=== PATIENT | male | born 2000 | race Caucasian/White ===

== ENCOUNTER 2020-04-04 13:38 | Emergency (ER) | payer OTHER, SELFPAY ==
[2020-04-04 14:33] VITALS: BP 147/74; PULSE 73; RESP 18; TEMP 36.6; O2SAT 100; BMI 31.7
--- NOTE | 2020-04-04 14:37 | HMH.EDUTC ---
[facility] [place] Clinical Impression: Encounter for laboratory testing for COVID-19 virus Disposition: Home, Self-Care Condition on Discharge: Good Instructions: Preventing the Spread of Coronavirus Discharge Instructions Additional Instructions: *Monitor Temp, Over the counter Motrin or Tylenol as directed/as needed Tylenol every 4 hours and Motrin every 6 hours (as long as your family doctor has told you that you can take it) for fever or pain. and straight to ER if unable to lower temp less than 101.0 after medication given Follow up IMMEDIATELY for new or worsening symptoms or no Noticeable improvement over the next 48-72 hours. 911 for difficulty breathing or swallowing You was tested for today for COVID19 your test result should be back later this evening or tomorrow, you may call back later this evening to see if your test results are back and the result You was given a handout with instructions for Self Quarantine and Self isolation for while you wait on test results and what to do if they are positive Referrals: PCP,No [Primary Care Provider] - As needed Forms: Work/School Release Time of Disposition: 14:40 Medical Decision Making - Oren Inquiry Pt receiving controlled substance: No Oren was queried for this patient: No Vital Signs: 04/04/20 14:33 Temperature 97.9 F Temperature Source Oral Pulse Rate [Radial] 73 Respiratory Rate 18 Blood Pressure [Right Arm] 147/74 H Blood Pressure Mean [Right Arm] 98 Blood Pressure Source [Right Arm] Automatic Cuff Blood Pressure Position [Right Arm] Sitting 02 Sat by Pulse Oximetry 100 Oxygen Delivery Method Room Air Orders (Tests/Meds): ORDERS Category Date Time Status Covid-19 Nasal PCR ([facility]) Routine Lab 04/04/20 14:30 Ordered [facility] [place] - General Stated complaint: Covid exposure Time Seen by Provider: 04/04/20 14:38 Mode of Arrival: Ambulatory Source of Information: Patient Limitations: No Limitations Description of Symptoms (Recalled from Triage Doc. by RN): covid exposure HEENT Symptoms (Recalled from RN notes): No Resp Symptoms (Recalled from RN notes): No Skin Symptoms (Recalled from RN notes): No MS Symptoms (Recalled from RN notes): No Functional Status (Recalled from RN notes): wnl - History of Present Illness Provider Complaint: Patient states that grandmother tested positive for COVID last week but did not have any symptoms and he lives in the same house as her States that they wanted to get him tested to make sure he doesnt have it - Related Data Previous Rx's Medication Instructions Recorded Famotidine 20 mg PO BID 30 Days #150 ml 06/09/19 Ofloxacin [Ocuflox 0.3% OPHTH 1 drp EYE-BOTH TID 7 Days #1 bottle 06/09/19 drops 5mL] Ondansetron [Zofran 4mg ODT] 4 mg PO Q8HP PRN #10 tab.rapdis 06/09/19 Allergies Allergy/AdvReac Type Severity Reaction Status Date / Time No Known Allergies Allergy Verified 08/04/18 11:46 - Worker's Comp Is this a Worker's Comp case?: No [facility] History - Hepatitis A Screen Drug use history?: No High risk sexual behaviors?: No History of sexually transmitted infection?: No Currently employed?: No Childcare worker?: No Do you have indoor plumbing?: Yes Do you have electricity?: Yes Attestation statement:: This patient has been screened for Hepatitis A risk factors. I have reviewed the patient's past medical history: Yes Medical History: Reports:: Anxiety Laterality Cases: Bilateral: Myringotomy (Ear Tubes) - Social History Smoking Status: Never smoker Alcohol Intake: never Substance Use Type: denies use Occupational Status: other Housing: house Household Members: family - Psychiatric History Pschychiatric History:: Reports:: Anxiety Family Hx:: Non-contributory ROS Obtained: Yes All systems reviewed & no additional complaints, Yes Systems reviewed as appropriate & no additional complaints - Constitutional Constitutional: Reports system reviewed and no additional
[2020-04-04 15:03] VITALS: BP 147/74; PULSE 73; RESP 18; TEMP 36.6; O2SAT 100
[2020-04-06 13:51] LABS: Covid-19 Nasal PCR Sendout Lex Not Detected
== END 2020-04-04 15:04 | disposition home or self-care (01) ==
PROVIDERS: Emergency Provider Nurse Practitioner
DX: Z20.828 Contact with and (suspected) exposure to other viral communicable diseases (principal); F41.9 Anxiety disorder, unspecified
CPT/HCPCS: 99201; U0004

== ENCOUNTER 2021-11-26 17:58 | Emergency (ER) | payer OTHER, SELFPAY ==
--- NOTE | 2021-11-26 18:13 | HMH.EDUTC ---
[facility] [place] Dis[place] Clinical Impression: Abscess of left lower leg Bilateral otitis media Qualifiers: Otitis media type: suppurative Chronicity: acute Recurrence: non-recurrent Spontaneous tympanic membrane rupture: without spontaneous rupture Qualified Code(s): H66.003 - Acute suppurative otitis media without spontaneous rupture of ear drum, bilateral Disposition: Home, Self-Care Condition on Discharge: Good Instructions: Middle Ear Infection, Boil Additional Instructions: Drink plenty of fluids. Take tylenol or ibuprofen for pain or fever. Take the medications as directed. Follow up with your regular doctor. GO TO THE ER FOR ANY WORSENING SYMPTOMS Keep the affected area clean and dry. Follow up with your regular doctor. Take the antibiotics as directed and apply the topical antibiotics as directed. Apply warm wet compresses to the affected area three or four times per day. GO TO THE ER FOR ANY WORSENING SYMPTOMS Prescriptions: Sulfamethoxazole/Trimethoprim [Bactrim Oral susp 100mL bottle] 20 ml PO BID 10 Days #400 ml Transmission Status: Received by [facility] Mupirocin [Bactroban 2% Ointment 22gm tube] 1 applicatio TP TID 7 Days #1 gm Transmission Status: Received by [facility] cephALEXin [cephALEXin 250mg/5mL 100mL susp] 500 mg PO Q8H 10 Days #300 ml Transmission Status: Received by [facility] prednisoLONE [Prednisolone] 15 mg PO BID 4 Days #50 ml Transmission Status: Received by [facility] Referrals: Brayan Leslie MD [Primary Care Provider] - Time of Disposition: 18:35 Medical Decision Making - Medical Records Medical records reviewed: No: I reviewed the patient's medical records. - Oren Inquiry Pt receiving controlled substance: No Vital Signs: 11/26/21 18:14 11/26/21 18:52 Temperature 98.0 F 98.0 F Temperature Source Oral Pulse Rate 62 Pulse Rate [Left] 62 Respiratory Rate 17 17 Blood Pressure 153/96 H Blood Pressure [Right Arm] 153/96 H Blood Pressure Mean [Right Arm] 115 02 Sat by Pulse Oximetry 97 - Lab Data Lab results reviewed: Yes: I reviewed the patient's lab results. [facility] [place] HPI - General Stated complaint: Bite on L ankle, ear ache Time Seen by Provider: 11/26/21 18:13 - History of Present Illness Provider Complaint: He states that he has had left ear pain and sore throat for the past 2 days. He also had a bug bite on his left lower calf that he states is getting infected. - Related Data Previous Rx's Medication Instructions Recorded Mupirocin [Bactroban 2% Ointment 1 applicatio TP TID 7 Days #1 gm 11/26/21 22gm tube] Sulfamethoxazole/Trimethoprim 20 ml PO BID 10 Days #400 ml 11/26/21 [Bactrim Oral susp 100mL bottle] cephALEXin [cephALEXin 250mg/5mL 500 mg PO Q8H 10 Days #300 ml 11/26/21 100mL susp] prednisoLONE [Prednisolone] 15 mg PO BID 4 Days #50 ml 11/26/21 Allergies Allergy/AdvReac Type Severity Reaction Status Date / Time No Known Allergies Allergy Verified 11/26/21 18:18 [facility] History - Hepatitis A Screen Attestation statement:: This patient has been screened for Hepatitis A risk factors. I have reviewed the patient's past medical history: Yes Medical History: Reports:: Anxiety Laterality Cases: Bilateral: Myringotomy (Ear Tubes) Other Surgeries: Yes: Other (tubes in ears when kid ) Amputation: No Fractures: No - Social History Smoking Status: Never smoker Alcohol Intake: never Substance Use Type: denies use Occupational Status: other Housing: house Household Members: family - Psychiatric History Pschychiatric History:: Reports:: Anxiety Family Hx:: Non-contributory ROS Obtained: Yes All systems reviewed & no additional complaints - Constitutional Constitutional: Reports chills, Denies fever(s), Reports poor appetite, Reports malaise - Eyes Eyes: Denies eye discharge - ENT Ears, Nose, Mouth, and Throat: Reports as per HPI
[2021-11-26 18:14] VITALS: BP 153/96; PULSE 62; RESP 17; TEMP 36.7; O2SAT 97; BMI 32.8
[2021-11-26 18:52] VITALS: BP 153/96; PULSE 62; RESP 17; TEMP 36.7
== END 2021-11-26 18:52 | disposition home or self-care (01) ==
PROVIDERS: Emergency Provider Nurse Practitioner Family; PCP Family Medicine
DX: L02.416 Cutaneous abscess of left lower limb (principal); H66.003 Acute suppurative otitis media without spontaneous rupture of ear drum, bilateral
CPT/HCPCS: 99212; G0463

== ENCOUNTER 2021-12-20 13:40 | Emergency (ER) | payer OTHER, SELFPAY ==
[2021-12-20 13:41] VITALS: BP 131/87; PULSE 61; RESP 20; TEMP 36.8; O2SAT 98; BMI 28.3
--- NOTE | 2021-12-20 14:40 | HMH.EDUTC ---
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 911 for difficulty breathing or swallowing Prescriptions: Loratadine [Claritin 10mg Tablet] 10 mg PO DAILY #30 tab Transmission Status: Pending to [facility] Fluticasone Propionate [Flonase 50mcg nasal spray 16gm] 1 spr NS DAILY #1 each Transmission Status: Pending to [facility] Referrals: Brayan Lselie MD [Primary Care Provider] - As needed Time of Disposition: 14:55 Medical Decision Making - Oren Inquiry Pt receiving controlled substance: No Oren was queried for this patient: No Vital Signs: 12/20/21 13:41 Temperature 98.3 F Temperature Source Oral Pulse Rate [Left Radial] 61 Respiratory Rate 20 Blood Pressure [Right Arm] 131/87 Blood Pressure Mean [Right Arm] 101 Blood Pressure Source [Right Arm] Automatic Cuff Blood Pressure Position [Right Arm] Sitting 02 Sat by Pulse Oximetry 98 Oxygen Delivery Method Room Air [facility] [place] HPI - General Stated complaint: Ear ache; runny nose; eyes burning Time Seen by Provider: 12/20/21 14:00 Mode of Arrival: Ambulatory Source of Information: Patient Limitations: No Limitations Description of Symptoms (Recalled from Triage Doc. by RN): c/o runny nose, ears hurt slightly, eyes burning, recheck on ear infection HEENT Symptoms (Recalled from RN notes): Yes Resp Symptoms (Recalled from RN notes): No Skin Symptoms (Recalled from RN notes): No MS Symptoms (Recalled from RN notes): No Functional Status (Recalled from RN notes): na - History of Present Illness Provider Complaint: Patient states that he had ear infection abougt 3-4 weeks ago States that it got better but feels like it may be coming back States that he has been having pain in his left ear, sinus congestion, burning in his eyes and feeling like he is getting another ear infection so he came in to get checked out - Related Data Previous Rx's Medication Instructions Recorded Mupirocin [Bactroban 2% Ointment 1 applicatio TP TID 7 Days #1 gm 11/26/21 22gm tube] cephALEXin [cephALEXin 250mg/5mL 500 mg PO Q8H 10 Days #300 ml 11/26/21 100mL susp] prednisoLONE [Prednisolone] 15 mg PO BID 4 Days #50 ml 11/26/21 clindamycin HCl 300 mg capsule 300 mg PO BID #10 cap 11/28/21 clindamycin palmitate HCl 75 mg/5 300 mg PO BID 5 Days #200 ml 11/28/21 mL oral solution methylprednisolone 4 mg tablets in See Rx Instructions PO PER PKG DIR 12/17/21 a dose pack #21 tab Fluticasone Propionate [Flonase 1 spr NS DAILY #1 each 12/20/21 50mcg nasal spray 16gm] Loratadine [Claritin 10mg 10 mg PO DAILY #30 tab 12/20/21 Tablet] Allergies Allergy/AdvReac Type Severity Reaction Status Date / Time No Known Allergies Allergy Verified 11/26/21 18:18 - Worker's Comp Is this a Worker's Comp case?: No [facility] History - Hepatitis A Screen Attestation statement:: This patient has been screened for Hepatitis A risk factors. I have reviewed the patient's past medical history: Yes Medical History: Reports:: Anxiety Laterality Cases: Bilateral: Myringotomy (Ear Tubes) Other Surgeries: Yes: Other (tubes in ears when kid ) Amputation: No Fractures: No - Social History Smoking Status: Never smoker Alcohol Intake: never Substance Use Type: denies use Occupational Status: other Housing: house Household Members: family - Psychiatric History
[2021-12-20 15:00] VITALS: BP 131/87; PULSE 61; RESP 20; TEMP 36.8; O2SAT 98
== END 2021-12-20 15:00 | disposition home or self-care (01) ==
PROVIDERS: Emergency Provider Nurse Practitioner; PCP Family Medicine
DX: J30.9 Allergic rhinitis, unspecified (principal); H92.02 Otalgia, left ear; T26.40XA Burn of unspecified eye and adnexa, part unspecified, initial encounter; F41.9 Anxiety disorder, unspecified; Z79.51 Long term (current) use of inhaled steroids; Z79.52 Long term (current) use of systemic steroids; Z79.899 Other long term (current) drug therapy
CPT/HCPCS: 99213; G0463

== ENCOUNTER 2022-05-08 19:21 | Emergency (ER) | payer OTHER, SELFPAY ==
--- NOTE | 2022-05-08 20:21 | EXP.UTC ---
Discharge Plan Disposition Patient Disposition: Home, Self-Care Condition: Good Prescriptions Prescriptions: New amoxicillin [amoxicillin] 400 mg/5 mL suspension for reconstitution 500 mg PO TID 10 Days Qty: 187.5 0RF [id number] [Bromfed DM] 2-30-10 mg/5 mL Syrup 5 ml PO Q6H PRN (Reason: Cough) Qty: 240 0RF methylprednisolone 4 mg Tablets,Dose Pack 4 mg PO DIRECTED Qty: 21 0RF No Action clindamycin HCl 300 mg capsule 300 mg PO BID Qty: 10 0RF clindamycin palmitate HCl 75 mg/5 mL recon soln 300 mg PO BID 5 Days Qty: 200 0RF methylprednisolone [Medrol (Chan)] 4 mg tablets,dose pack See Rx Instructions PO PER PKG DIR Qty: 21 0RF Rx Instructions: PO PER PKG DIR fluticasone propionate 120 SPRAY bottle 1 spr NS DAILY Qty: 1 0RF Rx Instructions: one spray in each nostril daily loratadine 10 MG tablet 10 mg PO DAILY Qty: 30 0RF mupirocin 22 GM ointment 1 applicatio TP TID 7 Days Qty: 1 0RF cephalexin 250 MG/5 ML bottle 500 mg PO Q8H 10 Days Qty: 300 0RF prednisolone 15 MG/5 ML solution 15 mg PO BID 4 Days Qty: 50 0RF Referrals Follow up/Referrals: Brayan Leslie MD [Primary Care Provider] - See instructions Activity Restrictions/Add. Instructions Additional Instructions/Restrictions: Drink plenty of fluids. Take tylenol or ibuprofen for pain or fever. Take the medications as directed. Follow up with your regular doctor. GO TO THE ER FOR ANY WORSENING SYMPTOMS Clinical Impressions Clinical Impression: Otitis media, Pharyngitis, Cervical adenopathy Instructions Patient Instructions: Middle Ear Infection, DI for Viral Syndrome, DI for Lymphadenopathy Discharge ED Provider: Leonidas Archer [facility] General Stated complaint: SOB [place] Time Seen by Provider: 05/08/22 20:21 History of Present Illness Provider Complaint: He states that for the past 2 days he has had a sore throat, ear pain, chills, low grade fever and he has felt bad. He tested negative for influenza and covid-19 at his school when his symptoms first began. He denies any shortness of breath. He does have some chest congestion though. Related Data Previous Rx's Medication Instructions Recorded cephalexin 250 mg/5 mL oral 500 mg (10 mL) PO Q8H 10 days #300 11/26/21 suspension mL mupirocin 2 % topical ointment 1 applicatio topical TID 7 days ##1 11/26/21 prednisolone 15 mg/5 mL oral 15 mg (5 mL) PO BID 4 days #50 mL 11/26/21 solution clindamycin HCl 300 mg capsule 300 mg PO BID infection #10 caps 11/28/21 clindamycin palmitate HCl 75 mg/5 300 mg (20 mL) PO BID 5 days #200 11/28/21 mL oral solution mL methylprednisolone 4 mg tablets in See Rx Instructions PO PER PKG DIR 12/17/21 a dose pack (Medrol (Chan)) #21 tabs fluticasone propionate 50 1 spr intranasal DAILY #1 ea 12/20/21 mcg/actuation nasal spray,suspension loratadine 10 mg tablet 10 mg PO DAILY #30 tabs 12/20/21 amoxicillin 400 mg/5 mL oral 500 mg (6.25 mL) PO TID 10 days 05/08/22 suspension #187.5 mL [id number] 5 ml PO Q6H PRN Cough #240 mL 05/08/22 2 mg-30 mg-10 mg/5 mL oral syrup (Bromfed DM) methylprednisolone 4 mg tablets in 4 mg PO DIRECTED #21 tabs 05/08/22 a dose pack Allergies Allergy/AdvReac Type Severity Reaction Status Date / Time No Known Allergies Allergy Verified 05/08/22 20:30 [facility] Disclaimer: The information contained in this section may have been updated after the patient was seen, as this information can be updated by other users. Social History Smoking Status: Never smoker alcohol intake: never substance use type: denies use current occupational status: other Travel in the last 8 weeks: None household members: family housing: house ROS Obtained: Yes All systems reviewed & no additional complaints except as documented Constitutional Constit
[2022-05-08 20:27] VITALS: BP 141/79; PULSE 88; RESP 18; TEMP 36.6; O2SAT 98; BMI 31.3
[2022-05-08 20:59] LABS: UTC Strep Screen (Rapid) Negative (Negative)
[2022-05-08 21:04] VITALS: BP 141/79; PULSE 88; RESP 18; TEMP 36.6
== END 2022-05-08 21:06 | disposition home or self-care (01) ==
PROVIDERS: Emergency Provider Nurse Practitioner Family; PCP Family Medicine
DX: H66.93 Otitis media, unspecified, bilateral (principal); J02.9 Acute pharyngitis, unspecified
CPT/HCPCS: 87880; 99212; G0463

== ENCOUNTER → 2022-06-23 09:45 | Outpatient (CLI) | payer OTHER, SELFPAY ==
[2022-06-23 14:58] LABS: Alanine Aminotransferase 34 U/L (12-78); Albumin Level 4.7 g/dl (3.5-5.0); Albumin/Globulin Ratio 1.7 (1.1-1.8); Alkaline Phosphatase 65 U/L (38-126); Aspartate Amino Transferase 29 U/L (17-59); Bilirubin,Total 0.8 mg/dl (0.2-1.3); Blood Urea Nitrogen 18 mg/dl (9-20); Calcium 9.4 mg/dl (8.4-10.2); Carbon Dioxide 28 mmol/L (22.0-30.0); Chloride 103 mmol/L (98-107); Chol/HDL Ratio 4.1 (1-3.5); Cholesterol 136 mg/dl (140-200); Estimated Glomerular Filt Rate 85 ml/min (>60); GFR (African American) 102 ML/MIN (>60); Globulin 2.7 g/dL (1.3-3.2); Glucose 99 mg/dl (74-100); HDL Cholesterol 33 mg/dl (40-60); Sodium 141 mmol/L (136-145); Total Protein,Serum 7.4 g/dl (6.3-8.2); Triglycerides 140 mg/dl (30-150); VLDL Cholesterol 28 mg/dL (0-40)
[2022-06-23 15:03] LABS: Basophils # 0.1 K/mm3 (0-0.2); Basophils % 0.7 % (0.1-2.0); Eosinophils # 0.1 K/mm3 (0.0-0.4); Eosinophils % 1.8 % (0.1-12.0); Hematocrit 49.4 % (42.0-52.0); Lymphocytes # 2.1 K/mm3 (0.7-4.5); Lymphocytes % 32.4 % (10-50); Mean Corpuscular HGB Conc 34.4 g/dL (31.8-35.4); Mean Corpuscular Hemoglobin 30.5 pg (27.0-31.2); Mean Corpuscular Volume 88.8 fl (80-94); Mean Platelet Volume 10.2 fl (7.4-10.4); Monocytes # 0.5 K/mm3 (0.1-1.0); Monocytes % 7.3 % (1.7-9.3); Neutrophils # 3.7 K/mm3 (1.8-7.8); Neutrophils % 57.8 % (37.0-80.0); Platelet Count 246 K/mm3 (142-424); Red Blood Count 5.56 M/mm3 (4.60-6.20); Red Cell Distribution Width 13.2 % (11.5-17.5); White Blood Count 6.3 K/mm3 (4.8-10.8)
[2022-06-23 15:09] LABS: Direct LDL Cholesterol 68.99 mg/dL (100-129)
== END ==
PROVIDERS: PCP Family Medicine; Visit Provider Family Medicine
DX: R53.83 Other fatigue (principal)
CPT/HCPCS: 80053; 80061; 85025